=== PATIENT | male | born 1960 | race Caucasian/White ===

== ENCOUNTER 2020-10-04 10:10 | Outpatient (RCR) | payer BC, SELFPAY ==
[2020-10-04] MEDS: COVID-19 VACC, MRNA(PFIZER)/PF 30 MCG/0.3 ML SYRINGE IM (12:53)
[2020-10-25] MEDS: COVID-19 VACC, MRNA(PFIZER)/PF 30 MCG/0.3 ML SYRINGE IM (12:16)
== END 2020-10-04 23:59 ==
LOC: IMMUN 10:10
PROVIDERS: Visit Provider Family Medicine
DX: Z23 Encounter for immunization (principal)
CPT/HCPCS: 0001A; 0002A; 91300

== ENCOUNTER → 2021-03-28 10:07 | Outpatient (CLI) | payer BC, SELFPAY | PROVIDERS: Visit Provider Physician Assistant Surgical | DX: Z20.822 Contact with and (suspected) exposure to COVID-19 (principal) | CPT/HCPCS: 87635; U0005; U0003 ==

== ENCOUNTER → 2021-04-22 10:19 | Outpatient (CLI) | payer BC, SELFPAY ==
[2021-04-22 11:37] LABS: PSA,Total- Diagnostic 6.28 ng/mL (0.0-4.0)
== END ==
PROVIDERS: PCP Family Medicine; Visit Provider Urology
DX: R97.20 Elevated prostate specific antigen [PSA] (principal)
CPT/HCPCS: 36415; 84153

== ENCOUNTER → 2021-06-24 17:14 | Outpatient (CLI) | payer BC, SELFPAY ==
--- NOTE | 2021-06-24 | IMM_PTH ---
PATIENT: CARLOS MELISSA LOC: [facility] U#:[id number] AGE/SX: 65/M ROOM: RE06/24/[address]: Dr. Lobo Parker MD : 1960 BED: DIS: SPEC #: [id number] RECD: 06/26/21 12:58 STATUS: ABIOLA RECoretta #: [id number] HENRY: 06/24/21 00:[address]: Lobo Parker DEPT: IMMUNOHISTOCHEMISTRY RECD BY: Lilia Milner ENTERED: 06/26/21 13:01 SP TYPE: IMMUNO OTHR DR: Dr. Wiliam Howell MD Tissues: C - PROSTATE RIGHT E - PROSTATE LEFT F - PROSTATE LEFT Procedures: 34BE12 (add) P40 (add) 34BE12 (initial) PHYSICIAN & INSTITUTION [place] [id number] SPECIMEN INFORMATION: Tissue Source: C - Right base, E - Left mid, F - Left base Clinical Info: R97.20 Specimen Number: [id number] C, E & F CPT code: 91997, 24920 x5 METHODOLOGY: Deparaffinized sections of prefer/formalin-fixed tissue or PAP/DQ stained slides are incubated with monoclonal/polyclonal antibodies/oligonucleotide probes. Localization is made via biotin free immunoperoxidase method. Appropriate controls are performed and reacted as expected. Results on target cell population are indicated in the following table: RESULTS: ANTIBODY / CLONE RESULT Block C P40 (BC28) negative 34BE12 (34BE12) negative Block E P40 (BC28) negative 34BE12 (34BE12) negative Block F P40 (BC28) negative 34BE12 (34BE12) negative These tests were developed and their performance characteristics determined by [facility]. They may not have been cleared or approved by the U.S. Food and Drug Administration. The FDA has determined that such clearance or approval is not necessary. The above immunohistochemical/dualISH markers are ordered and reviewed by the Pathologist. INTERPRETATION: C. Right prostate, base, core biopsy: Adenocarcinoma. E. Left prostate, mid, core biopsy: Adenocarcinoma. F. Left prostate, base, core biopsy: Adenocarcinoma. AM:jeison 06/27/2021
--- NOTE | 2021-06-24 08:00 | PROSBIL_PTH ---
PATIENT: CARLOS MELISSA LOC: [facility] U#:[id number] AGE/SX: 65/M ROOM: RE06/24/[address]: Dr. Lobo Parker MD : 1960 BED: DIS: SPEC #: [id number] RECD: 06/24/21 13:00 STATUS: ABIOLA MERLYN #: [id number] HENRY: 06/24/21 08:[address]: Lobo Parker DEPT: SURGICAL PATHOLOGY RECD BY: Rocky Brooks ENTERED: 06/25/21 09:43 SP TYPE: PROST BX YUSUF DR: Dr. Wiliam Howell MD Tissues: A - PROSTATE RIGHT B - PROSTATE RIGHT C - PROSTATE RIGHT D - PROSTATE LEFT E - PROSTATE LEFT F - PROSTATE LEFT Procedures: PROSTATE BX HEADER OPERATION: Prostate biopsy PRE-OP DIAGNOSIS: R97.20 TISSUE SUBMITTED: A - Right apex, B - Right mid, C - Right base, D - Left apex, E - Left mid, F - Left base MICROSCOPIC DIAGNOSIS A. Right prostate, apex, core biopsy: Adenocarcinoma. Caesar grade: 6 (3+3) Cores involved: 1 out of 1 core Tissue involved: 100% Greatest tumor length: 5 millimeters B. Right prostate, mid, core biopsy: Adenocarcinoma. Caesar grade: 6 (3+3) Cores involved: 2 out of 2 cores Tissue involved: 80% Greatest tumor length: 7.2 millimeters C. Right prostate, base, core biopsy: Adenocarcinoma. Caesar grade: 6 (3+3) Cores involved: 1 out of 2 cores Tissue involved: 2% Greatest tumor length: 1 millimeter See comment. D. Left prostate, apex, core biopsy: Benign prostatic tissue. E. Left prostate, mid, core biopsy: Adenocarcinoma. Caesar grade: 6 (3+3) Cores involved: 2 out of 2 cores Tissue involved: 5% Greatest tumor length: 1 millimeter See comment. F. Left prostate, base, core biopsy: Adenocarcinoma. Antigo grade: 6 (3+3) Cores involved: 1 out of 2 cores Tissue involved: __% Greatest tumor length: 5.5 millimeters See comment. AM:jeison 06/26/2021 COMMENT C, E & F - Immunohistochemistry ([id number]) supports the above diagnosis. MICROSCOPIC DESCRIPTION Slides are reviewed. GROSS DESCRIPTION A - Received is one container designated prostate, right apex. The specimen consists of one elongated fragment of light taylor-white soft tissue measuring 0.8 cm in length and 0.1 cm in diameter. The specimen is totally submitted in one cassette. B - Received is one container designated prostate, right mid. The specimen consists of two elongated fragments of light taylor-white soft tissue each measuring 1 cm in length and 0.1 cm in diameter. The specimen is totally submitted in one cassette. C - Received is one container designated prostate, right base. The specimen consists of two elongated fragments of light taylor-white soft tissue each measuring 1 cm in length and 0.1 cm in diameter. The specimen is totally submitted in one cassette. D - Received is one container designated prostate, left apex. The specimen consists of one elongated fragment of light taylor-white soft tissue measuring 0.5 cm in length and 0.1 cm in diameter. The specimen is totally submitted in one cassette. E - Received is one container designated prostate, left mid. The specimen consists of one elongated fragments of light taylor-white soft tissue each measuring 0.5 cm in length and 0.1 cm in diameter. The specimen is totally submitted in one cassette. F - Received is one container designated prostate, left base. The specimen consists of two elongated fragments of light taylor-white soft tissue each measuring 1 cm in length and 0.1 cm in diameter. The specimen is totally submitted in one cassette. / AM:jeison 06/25/21 TC:0 [facility]: [id number] x6
== END ==
PROVIDERS: PCP Family Medicine; Referring Provider Urology; Visit Provider Urology
DX: R97.20 Elevated prostate specific antigen [PSA] (principal)
CPT/HCPCS: 88305; 88341; 88342; G0416

== ENCOUNTER 2021-08-27 05:12 | Day surgery (SDC) | payer BC, SELFPAY ==
--- NOTE | 2021-08-25 09:53 | EKG12_ITS ---
Test Reason : PREOP Blood Pressure : / mmHG Vent. Rate : 065 BPM Atrial Rate : 065 BPM P-R Int : 132 ms QRS Dur : 086 ms QT Int : 404 ms P-R-T Axes : 026 043 028 degrees QTc Int : 420 ms Normal sinus rhythm Normal ECG Confirmed by TASNEEM HUFFMAN, HIREN ([id number]), assistant editor DARON DONALDSON ([id number]) on 08/26/2021 10:48:09 AM Referred By: Lobo Parker Confirmed By:HIREN BOATENG MD
[2021-08-25 11:21] LABS: Hematocrit 44.7 % (40-54); Hemoglobin 14.6 g/dL (13.0-16.5); Mean Corp Hgb Conc 32.7 g/dL (32-36); Mean Corpuscular Volume 94.9 fL (80-94); Mean Platelet Vol. 11.1 fl (6.2-12.0); Platelet Count 214 K/mm3 (150-450); RBC Distribution Width CV 12.5 % (11.6-14.6); RBC Distribution Width SD 43.6 fl (35.1-43.9); Red Blood Count 4.71 M/mm3 (4.6-6.2); White Blood Count 8.3 K/mm3 (4.4-11.0)
[2021-08-27] VITALS (12 sets, daily range): BP systolic 91–123; BP diastolic 64–87; PULSE 79–116; RESP 16; TEMP 36.5–37.2; O2SAT 92–98; BMI 35.6
--- NOTE | 2021-08-27 | PROST_PTH ---
PATIENT: CARLOS MELISSA LOC: [facility] [place] U#:[id number] AGE/SX: 61/M ROOM: RE08/27/[address]: Dr. Lobo Parker MD : 1960 BED: DIS: 08/28/2021 SPEC #: [id number] RECD: 08/27/21 13:07 STATUS: ABIOLA RECoretta #: [id number] HENRY: 08/27/21 00:[address]: Lobo Parker DEPT: SURGICAL PATHOLOGY RECD BY: Richard Britton ENTERED: 08/28/21 11:03 SP TYPE: PROSTATE OTHR DR: Dr. Wiliam Howell MD Tissues: A - Adipose tissue B - Lymph node of pelvis, NOS C - Lymph node of pelvis, NOS D - Prostate, NOS Procedures: Surgery Specimen Level III Surgery Specimen Level V Surgery Specimen Level HEADER OPERATION: Lap robotic radical prostatectomy with nerve sparing PRE-OP DIAGNOSIS: Malignant neoplasm of prostate TISSUE SUBMITTED: A ? Fat over prostate, B ? Left pelvic lymph node, C ? Right pelvic lymph node, D - Prostate MICROSCOPIC DIAGNOSIS A. Fat over prostate: Negative for carcinoma. B. Left pelvic lymph node: Three out of three lymph nodes, negative for metastatic carcinoma. C. Right pelvic lymph node: Six out of six lymph nodes, negative for metastatic carcinoma. D. Prostate, radical prostatectomy: Prostatic adenocarcinoma. See cancer summary in the comment section. SJ:jeison 08/29/2021 COMMENT PROSTATE CANCER (RADICAL) SUMMARY: Procedure: Radical Prostatectomy Prostate Size: Weight: 35.2 gm Size: 4 cm transversely, 3 cm anterior-posteriorly and 4 cm craniocaudally Histologic Type: Acinar adenocarcinoma Histologic Grade: Grade group 2, Caesar score 3+4=7 Intraductal Carcinoma: Not identified Tumor Quantitation: Estimated percentage of prostate involved by tumor: ~20% The tumor involves both right and left lobes. The tumor involves right lobe apical, mid and basal portion prostate and measures approximately 2.4 x 1.7 x 0.7 cm (measured microscopically). The tumor involves left lobe apical and mid portion of the prostate and measures approximately 1.6 x 1.3 x 1 cm (measured microscopically). Extraprostatic Extension: Not identified Urinary Bladder Neck Invasion: Not identified Seminal Vesicle Invasion: Not identified Lymphvascular Invasion: Not identified Perineural Invasion: Present, frequent Margins: Involved by invasive carcinoma (limited, <3 mm) Location of positive margin: apical, right lateral and left posterior. [place] pattern at positive margin: 3+3=6 Treatment effect: No known presurgical therapy. Regional Lymph Nodes: Number of lymph nodes involved: 0 Number of lymph nodes examined: 9 Distant metastasis: Not applicable Additional Pathologic Findings: Chronic inflammation and Focal high-grade prostatic intraepithelial neoplasia (HGPIN). Ancillary studies: Not performed PATHOLOGIC STAGE: pT2 pN0 pMx The above summary is in compliance with [employer] (CAP) Cancer Protocols Checklist and [place] [employer] on Cancer (AJCC), Staging Manual, 8th Ed. Please make reference to previous specimen ([id number]) right prostate, apex, mid and base with diagnosis of ?adenocarcinoma? and left prostate, mid and base with diagnosis of ?adenocarcinoma.? MICROSCOPIC DESCRIPTION Slides are reviewed. GROSS DESCRIPTION A - Received in fixative is one container labeled with the patient's name and designated fat over prostate. The specimen consists of a piece of yellow adipose tissue measuring 7.5 x 2 x 0.5 cm. No mass lesion is identified. Inside Plant Supervisor sections are submitted in one cassette. B - Received in fixative is one container labeled with the patient's name and designated left pelvic lymph node. The specimen consists of a piece of adipose tissue containing a nodule measuring 3 x 2.5 x 1 cm. Three nodules consistent with lymph nodes are identified measuring 0.5 to 2.5 cm in greatest dimension. The entire specimen is submitted in two cassettes as follows: 1 - one bisected lymph node, 2 - two lymph nodes and rest of the specimen. C - Received in fixative is one container labeled with the patient's name and designated right pelvic lymph node. The specimen consists of a piece of adipose tissue containing nodules consistent with lymph nodes measuring 3 x 3 x 1 cm. The entire specimen is submitted in three cassettes as follows: 1??one bisected lymph node, 2 - one lymph node, 3 - rest of the specimen. D - Received in fixative is one container labeled with the patient's name and designated prostate. The specimen consists of a radical prostatectomy specimen consisting of prostate and bilateral seminal vesicles and detached segment of vas deferens. The entire specimen weighs 35.2 gm. The prostate measures 4 cm transversely, 3 cm anterior-posteriorly and 4 cm craniocaudally. The right seminal vesicle measures 2 x 0.5 x 0.5 cm and right vas deferens measures 2.5 cm in length and 0.6 cm in diameter. The left seminal vesicle measures 2 x 0.8 x 0.5 cm and the left vas deferens measures 1.5 cm in length and 0.5 cm in diameter. The detached segment of vas deferens measures 2 cm in length and 0.4 cm in diameter. The prostate is inked as follows: anterior surface - yellow, posterior surface - black, right lateral surface - blue, left lateral surface - green. The bilateral seminal vesicles and vas deferens are inked as follows: bilateral vas deferens and seminal vesicles - black, anterior surface right seminal vesicle and vas deferens - blue and anterior left seminal vesicle and vas deferens ? green over blue. Sections do not reveal any mass lesion. Inside Plant Supervisor sections are submitted in 19 cassettes as follows: 1 - right seminal vesicle and vas deferens, 2 - left seminal vesicle and vas deferens and detached segment of vas deferens, 3 - apical (urethral) margin, enface, 4 - basal and bladder base margin, 5-9 - apical portion prostate, 10-13 - middle portion prostate, 14-19 - basal portion prostate. / SJ:rg 08/28/2021 TC:0 CPT: 51351 x2, 90946, 47506
[2021-08-27] MEDS: Lactated Ringers 1,000 ML 15 ML IV ×3 (06:03→10:30)
[2021-08-27] MEDS: Cefazolin 2 GM in 0.9% Normal Saline 100 ML IV (07:24)
--- NOTE | 2021-08-27 07:31 | PCM.HP.STD ---
HPI - General HPI Narrative CARLOS MELISSA, is a 61 M who presents with a h/o of frequency of urination and diagnosed with prostate cancer plan to treat with radical prostatectomy and will do nerve monitoring and bilateral lymph node dissection. [facility] Medical History (Updated 08/27/21 @ 07:[address] Lobo Parker MD) Alcohol use Arthritis Back pain Cancer History of edema History of umbilical hernia Injury of head and neck Loss of hearing Non-smoker Prostate disease Thyroid disease Wears glasses Home Medications levothyroxine 125 mcg capsule 125 mcg PO DAILY 03/28/21 [History Last Taken Unknown] ciprofloxacin HCl [Cipro] 500 mg PO BID #20 tab 08/27/21 [Rx Last Taken Unknown] docusate sodium [Colace] 100 mg PO BID #20 cap 08/27/21 [Rx Last Taken Unknown] oxycodone-acetaminophen 1 tab PO Q6H PRN 7 Days #20 tab 08/27/21 [Rx Last Taken Unknown] Allergy/AdvReac Type Severity Reaction Status Date / Time No Known Allergies Allergy Unverified 08/20/21 11:03 Surgical History (Updated 08/20/21 @ 11:15 by Lora Rodriguez) Hx of appendectomy Hx of vein stripping Social History Smoking Status: Never smoker ROS Constitutional Constitutional: Denies chills, fever(s) or malaise Eyes Eyes: Denies blurry vision or change in vision ENT HEENT: Reports none Cardiovascular Cardiovascular: Denies chest pain or palpitations Respiratory/Chest Respiratory/Chest: Denies cough or shortness of breath with exertion Gastrointestinal Gastrointestinal: Denies abdominal pain, constipation or diarrhea Musculoskeletal Musculoskeletal: Denies back pain, joint stiffness or joint swelling Integumentary Integumentary: Denies dry skin, jaundice, lesions or rash Neurologic Neurologic: Denies confusion, syncope or weakness Psychiatric Psychiatric: Reports none; Denies anxiety or depression Endocrine Endocrinology: Denies excessive sweating, fatigue or flushing Hematologic/Lymphatic Hematologic/Lymphatic: Denies anemia, easy bleeding or easy bruising Vital Signs Vital Signs Vital Signs: 08/27/21 05:56 Temperature 98.9 F Temperature Source Temporal Pulse Rate 79 Respiratory Rate 16 Respiratory Pattern Normal Blood Pressure 123/87 H Blood Pressure Mean 99 Blood Pressure Source Manual Blood Pressure Position Semi-Fowlers Blood Pressure Location Right Arm Pulse Ox 98 Oxygen Delivery Method Room Air Weight Weight: 97 kg Body Mass Index (BMI) 35.6 Physical Exam Const alert and oriented x3 General Appearance: cooperative HEENT normocephalic, head/scalp atraumatic, EAC's normal and TM's normal bilaterally Eyes PERRL and EOMs intact bilaterally Pupil: sluggish Neck no lymphadenopathy, supple and no JVD General: trachea midline Lymph Lymphatic: no lymphadenopathy noted, lymphedema and lymphadenopathy Resp normal respiratory effort, normal air movement and clear to auscultation bilaterally Cardio regular rate, regular rhythm and peripheral pulses 2+ throughout GI soft to palpation, non-tender and non-distended Extremity normal capillary refill and no clubbing, cyanosis or edema General Extremity: no tenderness to palpation of joints or extremities Skin no rashes or lesions noted General Skin Exam: turgor normal Lesions: no lesions Rashes: no rashes Neuro CN's II-XII intact bilaterally Speech: speech normal Motor Exam: strength 5/5 throughout; Negative for general weakness Psych thought process normal, cooperative and affect normal Appearance: appropriate Results Lab / Micro Data Result Diagrams: 08/25/21 10:04 Assessment & Plan Assessment/Plan (1) Malignant neoplasm of prostate:
--- NOTE | 2021-08-27 07:32 | DCINST_ITS ---
Discharge Instructions Diet Discharge Diet: Light diet - advance as tolerated and Soft diet Activity Discharge Activity: May Not Drive (while taking narcotic pain medications.) and May Shower May resume sexual activity in: 6-8 weeks Lifting Restrictions: no lifting x 6 weeks Dressing / Incision Call your doctor if you observe: Fever of 101 or Higher Change Dressing in: leave in place till F/U Cleanse incision/area with: Soap & Water Catheter: Taylor to leg bag and Taylor to large bag Drain: [place] Follow Up Care Please Follow Up With: Loob Parker MD When: Call [phone] for an appointment Test Results: Test results from this visit will be discussed in further detail at your follow-up appointment, if applicable. Discharge Plan Admission Primary Reason for Your Visit: Radical Prostatectomy Attending Provider: Lobo Parker Primary Care Provider: Wiliam Howell Instructions Patient Instructions: Radical Prostatectomy Dc Discharge Orders/Prescriptions Prescriptions: New ciprofloxacin HCl [Cipro] 500 mg tablet 500 mg PO BID Qty: 20 RF: 0 oxycodone-acetaminophen 5-325 mg tablet 1 tab PO Q6H PRN (Reason: pain) 7 Days Qty: 20 RF: 0 docusate sodium [Colace] 100 mg capsule 100 mg PO BID Qty: 20 RF: 0 Continued levothyroxine 125 mcg capsule 125 mcg PO DAILY RF: 0 Referrals / Follow Up: Wiliam Howell MD [Primary Care Provider] - Lobo Parker MD [STAFF PHYSICIAN] - Disposition Disposition (needs filled in before D/C Order can be placed): Home, Self Care
--- NOTE | 2021-08-27 12:57 | PCM.OPRPT ---
Report of Operation Date of Procedure: 08/27/21 Pre-Operative Diagnosis: Prostate cancer, frequency of urination Post-Operative Diagnosis: The same plus left inguinal hernia (by general surgery) Surgery/Procedure Performed:: Laparoscopic robotic assisted radical prostatectomy, bilateral pelvic lymph node dissection, EMG monitoring of sphincter and pelvic nerves. Left inguinal hernia repair performed by general surgeon see his note please. Description of Surgical Findings:: Patient presented to the hospital for treatment of his prostate cancer with radical prostatectomy. In the preoperative setting we discussed the options of management for his prostate cancer including active surveillance, radiation treatments, radioactive seeds, and radical robotic prostatectomy. We discussed the side effects of surgery including the potential to lose erections. We discussed the potential to have bladder control problems with stress incontinence which can be temporary or permanent. We discussed the risk of the surgery including the risk of general anesthetic, risk of bleeding, risk of infection, and risk of formation of hernia either incisional hernia or inguinal hernia. After long discussion with the patient the preoperative setting and also reviewed this in the preop area patient signed the consent form and we proceeded with a radical prostatectomy. Patient was taken back to the operating room he was identified, time out procedure was performed and he was placed supine on the table he underwent general anesthesia with intubation. The abdomen was shaved prepped and draped in usual sterile fashion as well as the penis and testicles. I attempted to place a catheter but found that he had severe stricture disease along the urethra and therefore a flexible cystoscopy was done placed a wire through the scope and then dilated the strictures in the urethra there is multiple dense strictures in the urethra we then place a 16 [place] shung[place] tip catheter that was used for the case. I then made an incision in the umbilicus and dissected down to the fascia advance a Veress needle into the peritoneal cavity and insufflated the peritoneal cavity with CO2 gas. I then placed a 12 mm trocar above the umbilicus. I then visualized the placement of the rest of the trochars, I placed a right arm robotic trocar, and air seal trocar, a suction port 5 mm trocar. And on the left side I placed 2 robotic arms. Once all the trochars were in placed the patient was put in steep Trendelenburg. And the robot was docked the arms were docked and then I placed the 0 degree camera through the robotic arm and also used a 30 degree camera during certain parts of the case. I used scissors in the right arm, prograsp in the third arm, and a bipolar in the second arm. After docking the robotic arms then on inspection of the abdomen we identified that the patient had a large left inguinal hernia so at this point general surgery was called and they evaluated the hernia and dissected and freed up the bowel and colon from the hernia sac and at the end of the case the general surgeon came back in and performed a hernia repair with mesh please see his dissection and his operative note. Initial dissection was to free the sigmoid colon off the lateral wall this was done by meticulously dissecting off the peritoneum and the sigmoid colon off the left lateral wall. This then allowed the prograsp to retract the sigmoid colon out of the pelvis. I then went below the bladder and identified the vas deferens incised the peritoneum over the vas deferens and traced the vas deferens below the bladder to the prostate and identified the right and left vasa deferens. Below behind the vas deferens then the seminal vesicles were identified. I then dissected the seminal vesicle free using pinpoint electrocautery and then we identified the other seminal vesicle and then dissected this using pinpoint electrocautery I then elevated the vas deferens and several vesicles off the prostate and was able to sweep the Denonvilliers' fascia off the prostate posteriorly all the way up to the apex of the prostate. Working laterally I made sure I went as lateral as possible to sweep the Denonilliers' fascia off the posterior aspect of the prostate and worked my way back, I then transected the vas deferens and the left and right side the seminal vesicles were then dissected free. And then I pulled out of the pelvis. At this point the bladder was dropped creating the space of Retzius with the bladder on traction with the fourth arm. Using electrocautery I dissected in the anterior peritoneal fascia and then created the space of Retzius dissecting towards the prostate. The pelvic lymph node dissection was then performed both on the left and the right pelvic lymph nodes the nodes that were taken on the right side extended from the right iliac artery lateral pelvic sidewall up to the junction of the artery and the lymph nodes and down to the obturator nerve and then also below the track laying machine operator nerve all the lymph nodes were removed during to remove those lymph nodes we used clips and electrocautery to control small blood vessels and also the control lymphatic. I then went to the left side and again did an extensive lymph node dissection starting of the left iliac artery extending the left iliac vein on the lateral sidewall down to the obturator nerve and the left side beyond the track laying machine operator nerve down further behind it cleaning out all the lymphatic tissue all this tissue was sent off as a specimen we use clips and electrocautery during the dissection. At the end we cleaned out all the lymphatic tissue on the right pelvic wall and no lymphatic tissue in the left pelvic wall. The prostate was then cleaned of the fat over the prostate and the fourth arm was used to retract the bladder and place traction. I then identified the endopelvic fascia that was overlying the prostate on the right side I incised endopelvic fascia and wwept the levator muscles off the prostate all the way to the apex on the right side, I then worked my way anterior to the prostate then transected to the puboprostatic ligament and the underlying dorsal vein complex was not injured. I then went to the other side and identified the endopelvic fascia in the left side incised in a fashion the left side and swept the levator muscles off the prostate on the left side all the way up to the apex the puboprostatic ligament on the left side was then dissected and transected I then freed up the fascia overlying the dorsal vein complex. I then used the prograsp to encircled the dorsal vein complex with the prograsp and then switched over to the right and left needle driver engineer and suture ligated the dorsal vein complex above the prograsp. The prograsp was then placed back in the bladder and put back on traction I then identified the junction between the bladder and the prostate and dissected down between the bladder and the prostate untilI came across the catheter we then dissected posteriorly to the bladder and prostate to free the prostate and the bladder off each other and the muscles between the bladder and the prostate was then cauterized to free up the bladder. After the dissection between the bladder and prostate, then using the kit provided by the pro prep nerve monitoring system the electrodes were placed into the abdomen and we have placed the right electrode into the right levator muscles in the left and right electrode in the left levator muscles then during this dissection we identified the action potential and identified the pelvic nerves during the dissection these nerves were checked periodically to ensure that we were far away from the nerves and cause no damage to the nerves during the entire case these were monitored and then at the end of the case we confirmed that the nerves are still intact with the electro EMG monitoring system. I then went on top of the prostate and identified the endopelvic fascia on top of the prostate this was incised all the way to the apex and then we swept the endopelvic fascia off the prostate laterally and then identified the plane between endopelvic fascia and the prosthetic pseudocapsule and swept the fascia laterally until reaching the course of the neurovascular bundles and then released the neurovascular bundles off the prostate laterally all the way back in a retrograde fashion back to the junction of the pedicles then the prostate was placed on traction with the fourth arm pulling the prostate laterally identified the pedicle to the prostate between the seminal vesicles and the and the neurovascular bundle and this was taken using sequential small hemolocks. After the pedicle was taken the I then dissected underneath the prostate sweeping the neurovascular bundle off the prostate we able to follow the nice smooth plane between the neurovascular bundle and the pseudocapsule all the way to the apex once this was identified we swept this up all the way up to the apex and there was perfect nerve sparing on the right side. Then went to the left side the prostate identified the endopelvic fascia over the left side of the prostate I incised the endopelvic fascia all the way to the apex and then swept this off laterally I then released the neurovascular bundles on the left side of the prostate sweeping him off the prostate laterally I then elevated the prostate up up with the prostate and traction identified the pedicle to the prostate on the left side and then the pedicles taken with sequential Hem-o-ligia clips I then was able to dissected the neurovascular bundle off the left posterior aspect the prostate this was a perfect dissection all the way up on the left side following the pseudocapsule all the way up the left side until we reached the apex of the prostate. After the both the neurovascular bundles has been swept off the posterior to the prostate I then went above and transected the dorsal vein complex there was minimal to no bleeding but then dissected down to the urethra and circumfencial dissected around the urethra I then switched the right and left arm with the needle drivers and I suture-ligated the dorsal vein complex again just to ensure that there was no bleeding from the dorsal vein complex. I then transected through the urethra with scissors and the prostate was then freed and released off the prostate bed and put an Endo Catch bag. At this point the bladder neck was reconstructed and then an anastomosis was performed between the prostate and the bladder with a 3 oh V-Loc stitch in a running fashion starting from the bladder neck at the 6 o'clock position working to the 12 o'clock position with continuous stitches to complete a perfect anastomosis between the bladder and the prostate. I then placed a new catheter 16 [place]an [place] shung[place] tip catheter over a Glidewire, flushed the bladder and there was no leakage from the anastomosis I put 10 cc in the balloon and pulled it up pulled back gently. I then ensured that there was no bleeding from the dorsal vein complex no bleeding from the neurovascular bundles FloSeal was placed as necessary once hemostasis was ensured and adequate then I placed the bladder back in position in the pelvis the prostate was exchanged to the camera port I closed the air seal port with a 10 12 Bowen Ball stitch. And the extracted the prostate through the umbilicus. The robot was undocked all the ports were removed under direct visualization then closed the extraction site with 0 Vicryl with a CT1 needle once the extraction site was closed. I then closed all the incision with subcuticular stitches with 4-0 Monocryl and then bandages were placed on the incisions catheter was flushed to make sure it was draining well there was no clots and it was crystal clear patient's anesthetic was reversed he was extubated and taken back to the PACU in stable condition all the needles and sponges and instruments were accounted for. Blood loss was minimal and the drain was a 16fr shungnak tip Fenton catheter. No other surgical drain was left. I was present during the entire case. Surgeon: Keith Type of Anesthesia: General Drains: 16 fr shungnak tip fenton Estimated Blood Loss (mL): 300 Admit VTE Documentation VTE Present on Admission: No VTE Mechan Device Prophylaxis: SCD's VTE Pharm Prophylaxis ordered?: No
[2021-08-27] MEDS: Bupivacaine Mpf 0.5% 30 ML VIAL (13:00)
--- NOTE | 2021-08-27 13:07 | PCM.OPRPT ---
Problems Associated Problem List Diagnoses (1) Left inguinal hernia: Report of Operation Date of Procedure: 08/27/21 Pre-Operative Diagnosis: Left inguinal hernia Post-Operative Diagnosis: Same Surgery/Procedure Performed:: Robotic assisted laparoscopic left inguinal hernia repair with mesh Description of Procedure: I was called in the operating room during the patient's robotic prostatectomy. Patient had a large left inguinal hernia with incarcerated colon. I discussed the procedure with the patient's sister as well as mesh placement. The patient sister believes that this is what he would want to repair his hernia and she gave consent to proceed. I was asked to reduce the colon and repair the hernia. There was already an incision in the peritoneum and this was dissected inferiorly until the hernia sac was identified. The hernia sac and its contents were then reduced and dissected free from his surrounding adhesions. Once the hernia sac was completely reduced Dr. Parker continued his dissection and prostatectomy. After his prostatectomy and anastomoses were performed, I placed mesh and finished the hernia repair. ProGrip mesh was placed in the left inguinal region and unfolded over the hernia defect. There was good coverage on all sides and then the peritoneum was reapproximated using 2 #3 OV lock sutures completely covering the mesh and pelvic area with peritoneum. This concluded my portion of the case. Grafts/Implants Used: ProGrip mesh in the left inguinal region Admit VTE Documentation VTE Mechan Device Prophylaxis: SCD's
[2021-08-27] MEDS: Ketorolac 15 MG/ML Vial IV ×2 (15:01→18:40)
[2021-08-27] MEDS: Ondansetron 4 MG/2 ML Vial IV (15:07)
[2021-08-27] MEDS: Lactated Ringers 1,000 ML 150 ML IV ×2 (16:50→23:33)
[2021-08-27] MEDS: Ciprofloxacin 500 MG Tablet PO (21:19)
[2021-08-27] MEDS: Docusate Sodium 100 MG Capsule PO (21:19)
[2021-08-28] MEDS: Ketorolac 15 MG/ML Vial IV ×2 (00:36→06:04)
[2021-08-28 03:31] VITALS: BP 95/66; PULSE 84; RESP 16; TEMP 36.9; O2SAT 92
[2021-08-28] MEDS: Lactated Ringers 1,000 ML 150 ML IV (06:04)
--- NOTE | 2021-08-28 07:33 | PCM.PN.BLA ---
Progress Note Status post radical prostatectomyAnd hernia repair by general surgery, he is doing well plan to discharge home today with Taylor catheter.
[2021-08-28 07:45] VITALS: BP 107/74; PULSE 91; RESP 16; TEMP 37.4; O2SAT 94
[2021-08-28] MEDS: Ciprofloxacin 500 MG Tablet PO (09:46)
[2021-08-28] MEDS: Docusate Sodium 100 MG Capsule PO (09:46)
== END 2021-08-28 10:18 | disposition home or self-care (01) ==
LOC: SDC 05:13 → AC 07:27 → MS3 08-28 09:39 → AC 08-29 08:54 → MS3 08-29 08:54
PROVIDERS: Anesthesiology; PCP Family Medicine; Referring Provider Urology; Visit Provider Urology
PROC: 0VT04ZZ Resection of Prostate, Percutaneous Endoscopic Approach (ICD-10-PCS; CPT 55866; principal; 2021-08-27 07:10)
DX: C61 Malignant neoplasm of prostate (principal); K40.90 Unilateral inguinal hernia, without obstruction or gangrene, not specified as recurrent; R35.0 Frequency of micturition; E07.9 Disorder of thyroid, unspecified; H91.90 Unspecified hearing loss, unspecified ear
CPT/HCPCS: 55866; 49650; 00865; 38770; 36415; 84443; 85027; 86850; 86900; 86901; 88304; 88307; 88309; 93005; J7120; C1769; J2405; J3490

== ENCOUNTER → 2021-12-22 | Outpatient (CLI) | payer BC, SELFPAY ==
[2021-12-22 11:52] LABS: PSA,Total- Diagnostic < 0.01 ng/mL (0.0-4.0)
== END | disposition home or self-care (01) ==
LOC: LAB 10:10
PROVIDERS: PCP Family Medicine; Visit Provider Urology
DX: Z48.816 Encounter for surgical aftercare following surgery on the genitourinary system (principal)
CPT/HCPCS: 36415; 84153

== ENCOUNTER → 2022-06-25 | Outpatient (CLI) | payer BC, SELFPAY ==
[2022-06-25 11:34] LABS: PSA,Total- Diagnostic 0.03 ng/mL (0.0-4.0)
== END | disposition home or self-care (01) ==
PROVIDERS: Referring Provider Registered Nurse; Visit Provider Registered Nurse
DX: C61 Malignant neoplasm of prostate (principal)
CPT/HCPCS: 36415; 84153

== ENCOUNTER → 2022-12-18 | Outpatient (CLI) | payer BC, SELFPAY ==
[2022-12-18 09:02] LABS: PSA,Total- Diagnostic 0.09 ng/mL (0.0-4.0)
== END | disposition home or self-care (01) ==
PROVIDERS: Referring Provider Urology; Visit Provider Urology
DX: C61 Malignant neoplasm of prostate (principal)
CPT/HCPCS: 36415; 84153

== ENCOUNTER → 2023-03-23 | Outpatient (CLI) | payer BC, SELFPAY ==
[2023-03-23 10:25] LABS: PSA,Total- Diagnostic 0.11 ng/mL (0.0-4.0)
== END | disposition home or self-care (01) ==
LOC: LAB 08:33
PROVIDERS: Referring Provider Urology; Visit Provider Urology
DX: R97.20 Elevated prostate specific antigen [PSA] (principal)
CPT/HCPCS: 36415; 84153